=== PATIENT | male | born 1965 | race Caucasian/White ===

== ENCOUNTER 2017-05-01 08:54 | Inpatient (IN) | payer SELFPAY ==
[~2017-05-01] VITALS: Ht 177.8 cm; Wt 72.1 kg
--- NOTE | 2017-05-01 08:54 | NUR ---
BBRA [address] C/O DIFFUSE ABD PAIN X4 HOURS HEAD OF SCIENCE. NAD NOTED. PT AAO X4, AMBULATORY WITH STEADY GAIT. RR EVEN AND UNLABORED. VSS. DR MALDONADO AT BEDSIDE FOR EVAL.
[2017-05-01] MEDS ORDERED: IV NS 0.9% 1,000 ML BAG IV ONE (09:00)
[2017-05-01] MEDS ORDERED: ONDANSETRON HCL/PF 4 MG/2 ML VIAL IVP ONE (09:00)
[2017-05-01] MEDS ORDERED: HYDROMORPHONE INJ 2 MG/ML DISP.SYRIN IV ONE (09:00)
[2017-05-01] MEDS ORDERED: LORAZEPAM INJ 2 MG/ML VIAL IV ONE ×2 (09:00→11:00)
[2017-05-01] MEDS ORDERED: ONDANSETRON HCL/PF 4 MG/2 ML VIAL ONE (09:07)
[2017-05-01] MEDS ORDERED: LORAZEPAM INJ 2 MG/ML VIAL ONE ×2 (09:08→11:18)
[2017-05-01] MEDS ORDERED: MORPHINE SULFATE INJ 4 MG/ML DISP.SYRIN ONE ×2 (09:10→13:03)
[2017-05-01 09:24] LABS: BASOPHILS # (AUTO) 0.1 /CMM (0.0-0.2); BASOPHILS % (AUTO) 0.8 % (0.0-2.0); HEMATOCRIT 46 % (39-51); LYMPHOCYTES % (AUTO) 19.3 % (20.0-44.0); MEAN CORPUSCULAR HEMOGLOBIN 29 PG (26.0-33.0); MEAN CORPUSCULAR HGB CONC 33 g/dl (31.0-36.0); MEAN CORPUSCULAR VOLUME 89 fL (80-96); MONOCYTES # (AUTO) 0.5 /CMM (0.1-1.30); MONOCYTES % (AUTO) 5.1 % (2.0-12.0); NEUTROPHILS # (AUTO) 7.8 /CMM (1.8-8.9); NEUTROPHILS % (AUTO) 74.8 % (43.0-81.0); PLATELET COUNT (AUTO) 262 /CMM (150-450); RED BLOOD CELL COUNT(AUTO) 5.12 MIL/uL (4.5-6.0); WHITE BLOOD COUNT (AUTO) 10.5 K/uL (4.3-11.0)
[2017-05-01] MEDS ORDERED: MORPHINE SULFATE INJ 2 MG/ML DISP.SYRIN IV ONE (09:30)
[2017-05-01 09:40] LABS: CALCIUM, SERUM 9.1 mg/dL (8.5-10.1); CREATININE 0.9 mg/dL (0.6-1.3); POTASSIUM 4.1 mmol/L (3.5-5.1)
[2017-05-01 09:42] LABS: INR 0.95 (0.87-1.13); PROTHROMBIN TIME 9.9 SECS (9.5-12.7)
[2017-05-01 09:44] LABS: ALBUMIN 3.4 g/dL (3.4-5.0); BILIRUBIN,DIRECT 0.1 mg/dL (0.0-0.2); BILIRUBIN,TOTAL 0.2 mg/dL (0.2-1.0); TOTAL PROTEIN, SERUM 8.4 g/dL (6.4-8.2)
--- NOTE | 2017-05-01 11:21 | NUR ---
[facility] PAGED, SPIRAL WINDING MACHINE HELPER
--- NOTE | 2017-05-01 11:23 | NUR ---
CALLED NURSING SUP. FOR MS BED
--- NOTE | 2017-05-01 11:37 | NUR ---
CALLED (SWAGING MACHINE ADJUSTER SURGEON), TRANSFERRED CALL TO .
[2017-05-01] MEDS ORDERED: ZOLPIDEM TARTRATE 5 MG TABLET PO PRN (12:00)
[2017-05-01] MEDS ORDERED: ONDANSETRON HCL/PF 4 MG/2 ML VIAL IVP PRN (12:00)
[2017-05-01] MEDS ORDERED: ACETAMINOPHEN 325 MG TABLET PO PRN (12:00)
[2017-05-01] MEDS ORDERED: Z GUARD REMEDY 2 OZ OINT TP PRN (12:00)
--- NOTE | 2017-05-01 12:00 | NUR ---
REPORT GIVEN TO JO
[2017-05-01] MEDS ORDERED: IOHEXOL-300 100 ML VIAL IV ONE (12:30)
[2017-05-01] MEDS ORDERED: IV NS 0.9% 500 ML IV ONE (12:31)
--- NOTE | 2017-05-01 12:31 | NUR ---
PT TO RADIOLOGY FOR CT ABDOMEN W/ CONTRAST VIA GURNEY.
[2017-05-01] MEDS ORDERED: MORPHINE SULFATE INJ 4 MG/ML DISP.SYRIN IV STA (13:01)
[2017-05-01 13:40] VITALS: BP 136/77
--- NOTE | 2017-05-01 15:00 | NUR ---
STEFANI RN NOTE Received patient from ER via jo-ann as accompanied by ER staff @[id number] with admitting Dx: SBO. Pt sleepy and gets agitated when tried to obtain any information, unable to obtain any information at this time. IV site on LAC intact and patent. Dr. Carmona saw patient in ER per May (ER nurse). Skin pictures taken and placed in chart. Took 4 staff members assistance to draw Lab for lactic acid by prepress technician. Bed in low locked position and bed alarm on. Pt placed near nurses station at this time for safety. Will continue to monitor.
[2017-05-01] MEDS: IV D5/0.45 NACL 1,000 ML IV PRN (15:38)
[2017-05-01 16:00] VITALS: BP 131/69
[2017-05-01] MEDS ORDERED: IV D5/0.45 NACL 1,000 ML IV ONE (16:00)
--- NOTE | 2017-05-01 16:11 | NUR ---
AM RN NOTE Lactic acid results 2.[address] Carmona with new order to give D5 1/2 NS 1000ml bolus x1, order noted and carried out. Dr. Carmona made aware that pt was uncooperative with NG tube insertion in ER and also on this floor and will re-attempt. IV bolus initiated at this time.
--- NOTE | 2017-05-01 17:58 | NUR ---
AM RN NOTE Pt lying in his bed, IV bolus x1 dose completed. Called Dr. Carmona made aware that patient gets uncooperative, agitated and tries to pull out NG tube when nurses tried to insert. New orders given by Dr. Carmona for sha soft wrist restraints and 1:1 sitter, orders noted and carried out. Will reattempt. CN (Berenice) made aware.
--- NOTE | 2017-05-01 18:15 | NUR ---
AM RN NOTE Reagan soft wrist restraints applied as assisted by 3 nursing staff. Pt still resists with NG tube insertion, notified CN (Berenice) and per CN endorse it to next shift to reattempt.
--- NOTE | 2017-05-01 19:17 | NUR ---
AM RN NOTE Report given to oncoming RN to reattempt with NG tube insertion.
--- NOTE | 2017-05-01 19:30 | NUR ---
MS RN NOTE: PATIENT RESTING IN BED, NO ACUTE DISTRESS NOTED. BREATHING EVEN AND UNLABORED, NO SOB NOTED. IV TO LAC IN PLACE AND RAC IN PLACE, INFUSING NS AT 75 ML/HR. SITTER AT BEDSIDE. BED LOCKED AND IN LOWEST POSITION, CALL LIGHT IN REACH. WILL CONTINUE TO MONITOR.
[2017-05-01 20:00] VITALS: BP 140/88
--- NOTE | 2017-05-02 01:00 | NUR ---
MS RN NOTE: NG TUBE PLACE TO LEFT NARE, WITHOUT COMPLICATION AND DRAINING DARK BROWN EMESIS. STAT CHEST XRAY ORDERED FOR PLACEMENT. HOB ELEVATED. WILL CONTINUE TO MONITOR.
--- NOTE | 2017-05-02 01:50 | NUR ---
MS RN NOTE: PATIENT NG TUBE 16 FR TO LEFT NARE, CONFIRMED WITH CHEST XRAY FOR PLACEMENT. NG TUBE CONNECTED TO LOW INTERMITTENT SUCTION PER MD ORDER. WILL CONTINUE TO MONITOR.
[2017-05-02] MEDS: IV D5/0.45 NACL 1,000 ML IV PRN (05:35)
--- NOTE | 2017-05-02 06:05 | NUR ---
MS RN NOTE: PATIENT RESTING IN BED, NO ACUTE DISTRESS NOTED. BREATHING EVEN AND UNLABORED, NO SOB NOTED. IV TO LAC IN PLACE AND RAC IN PLACE, INFUSING NS AT 75 ML/HR. NG TUBE TO LEFT NARE IN PLACE, WITH LOW INTERMITTENT SUCTION, WITH ABOUT 100 ML OF DARK BROWN OUTPUT. HOB ELEVATED. BILATERAL SOFT WRIST RESTRAINTS IN PLACE WITH GOOD CIRCULATION NOTED. BED LOCKED AND IN LOWEST POSITION, CALL LIGHT IN REACH. WILL ENDORSE TO DAY NURSE TO CONTINUE WITH PLAN OF CARE.
[2017-05-02 06:37] LABS: ALBUMIN 2.8 g/dL (3.4-5.0); BASOPHILS % (AUTO) 0.1 % (0.0-2.0); BILIRUBIN,TOTAL 0.4 mg/dL (0.2-1.0); CALCIUM, SERUM 8.5 mg/dL (8.5-10.1); CREATININE 0.7 mg/dL (0.6-1.3); HEMATOCRIT 49 % (39-51); HEMOGLOBIN 16.1 g/dL (13.5-17.5); LYMPHOCYTES # (AUTO) 0.9 /CMM (0.8-4.8); LYMPHOCYTES % (AUTO) 8.2 % (20.0-44.0); MAGNESIUM 1.6 mg/dL (1.8-2.4); MEAN CORPUSCULAR HEMOGLOBIN 30 PG (26.0-33.0); MEAN CORPUSCULAR HGB CONC 33 g/dl (31.0-36.0); MEAN CORPUSCULAR VOLUME 89 fL (80-96); MONOCYTES # (AUTO) 0.6 /CMM (0.1-1.30); MONOCYTES % (AUTO) 5.5 % (2.0-12.0); NEUTROPHILS # (AUTO) 9.6 /CMM (1.8-8.9); NEUTROPHILS % (AUTO) 86.2 % (43.0-81.0); PHOSPHORUS 4.3 mg/dL (2.5-4.9); PLATELET COUNT (AUTO) 253 /CMM (150-450); POTASSIUM 3.8 mmol/L (3.5-5.1); RDW COEFFICIENT OF VARIATION 15.4 (11.5-15.0); RED BLOOD CELL COUNT(AUTO) 5.45 MIL/uL (4.5-6.0); TOTAL PROTEIN, SERUM 7.3 g/dL (6.4-8.2); WHITE BLOOD COUNT (AUTO) 11.1 K/uL (4.3-11.0)
[2017-05-02 08:00] VITALS: BP 151/95
--- NOTE | 2017-05-02 09:21 | NUR ---
ADVANCED NG TUBE BY [address] CAZARES'S REQUEST. PT TOLERATED WELL.
[2017-05-02] MEDS: Magnesium 1GM/D5W 100ML PREMIX 100 ML IV SCH ×2 (12:10→13:41)
[2017-05-02] MEDS: MORPHINE SULFATE INJ 2 MG/ML DISP.SYRIN IM PRN (14:25)
[2017-05-02] MEDS: LORAZEPAM INJ 2 MG/ML VIAL IV PRN (15:33)
--- NOTE | 2017-05-02 15:47 | NUR ---
GAVE ATIVAN PATIENT IS STARTING TO SCREAM AND CURSE AT STAFF. NOW SLEEPING.
--- NOTE | 2017-05-02 15:55 | NUR ---
PT REFUSED 1600 VITALS
--- NOTE | 2017-05-02 18:34 | NUR ---
CLOSING NOTES NO SIGNIFICANT CHANGES IN PATIENT CONDITION THROUGHOUT THE SHIFT. NO SOB OR DISTRESS NOTED AT THIS TIME. PATIENT HAS BEEN SLEEPING ON AND OFF SINCE RECEIVING ATIVAN DOSE EARLIER IN THE SHIFT. BED IN A LOW POSITION, CALL LIGHT WITHIN PATIENT REACH. WILL ENDORSE FOR JUNIE.
--- NOTE | 2017-05-02 19:30 | NUR ---
RN NOTE; RECEIVED PT IN BED SLEEPING AT THIS T BEBO. BILATERAL SOFT WRIST RESTRAIN IN PLACE. W/ NO S/S OF SKIN OR CIRCULATORY IMPAIRMENT. NGT IN PLACE W/ ONGOING SUCTIONING GREEN GASTRIC JUICE. NO S.S OF PAIN OR DISCOMFORT NOTED, CALL LIGHT WITHIN REACH. BED LOW LOCKED. SRX2. WILL CONT TO MONITOR,
[2017-05-02 20:00] VITALS: BP 138/88
[2017-05-03] MEDS: LORAZEPAM INJ 2 MG/ML VIAL IV PRN (01:10)
--- NOTE | 2017-05-03 01:10 | NUR ---
ATIVAN GIVEN ORDERED FOR ANXIETY AND AGITATION M/B SCREAMING . DIAPER CHANGE WAS DONE AND MADE PT COMFORTABLE IN BED. WILL CONT TO MONITOR ,
[2017-05-03 01:24] VITALS: BP 138/88
[2017-05-03 06:48] LABS: CREATININE 0.7 mg/dL (0.6-1.3); MAGNESIUM 1.8 mg/dL (1.8-2.4); POTASSIUM 4.1 mmol/L (3.5-5.1)
--- NOTE | 2017-05-03 07:00 | NUR ---
RN NOTE; PT IN BED SLEEPING, AROUSES EASILY. W/ ON ND OFF EPISODES OF SCREAMING AND YELLING. BILAT SOFT WRIST RESTRAIN IN PLACE. NEEDS ATTENDED. CLEANED AND DRIED. CALL LIGHT WITHIN REACH. WILL CONT TO MONITOR AND WILL ENDORSE TO AM SHIFT FOR JUNIE.
--- NOTE | 2017-05-03 07:10 | NUR ---
ms rn initial notes Received patient in bed, asleep, head of bed elevated, no SOB or distress noted. On restraint and checked for circulation. NGT attached to low intermitent suctioning with no output noted at this time. IV intact and patent with IVF infusing well. Kept patient clean and comfortable in bed, call light with in patient reach, will continue to monitor accordingly.
[2017-05-03 08:00] VITALS: BP 140/73
[2017-05-03 09:14] LABS: *BASOS 0 % (Not Estab.); *EOS 0 % (Not Estab.); *HCT 43.3 % (37.5-51.0); *IMMATURE GRANULOCYTES 0 % (Not Estab.); *LYMPHOCYTES 16 % (Not Estab.); *LYMPHS, ABSOLUTE 1.3 x10E3/uL (0.7-3.1); *MCH 30.2 pg (26.6-33.0); *MCHC 34.6 g/dL (31.5-35.7); *MCV 87 fL (79-97); *MONOCYTES 9 % (Not Estab.); *MONOS, ABSOLUTE 0.7 x10E3/uL (0.1-0.9); *NEUTROPHILS 75 % (Not Estab.); *NEUTROPHILS, ABSOLUTE 5.9 x10E3/uL (1.4-7.0); *PLT 242 x10E3/uL (150-379); *RBC 4.97 x10E6/uL (4.14-5.80); *RDW 14.7 % (12.3-15.4)
[2017-05-03] MEDS: MORPHINE SULFATE INJ 2 MG/ML DISP.SYRIN IM PRN (09:48)
[2017-05-03] MEDS: IV D5/0.45 NACL 1,000 ML IV PRN (09:48)
--- NOTE | 2017-05-03 12:21 | NUR ---
WOUND CARE CONSULT: LIMITED ASSESSMENT DUE TO PT AGITATED AND COMBATIVE AT TIMES. DRY CRACKED SKIN NOTED TO HANDS AND FEET. RECOMMEND A& D OINTMENT. DISCUSSED WITH NURSING STAFF. CURRENT SHAHLA SCORE IS 14. WILL SEE PRN. Addendum: 05/03/17 at 1221 by GABBIE CHARLTON WNDNU Amended: Links added.
[2017-05-03] MEDS ORDERED: VITAMINS A AND D 56.7 GM TUBE TP PRN (12:30)
--- NOTE | 2017-05-03 12:51 | NUR ---
MS RN NOTES Informed Dr. Carmona regarding patient pulled out his NGT and informed regarding KUB result and made aware. Per MD to re-insert NGT and document if patient refused. All orders carried out and noted. Will continue to monitor.
--- NOTE | 2017-05-03 12:59 | NUR ---
ms rn notes Explained to the patient regarding NGT re-insertion and patient refuses, explained the risk and benefits x 3 and still refused. Patient verbalized to eat but explained the risk if he eats and the result of the KUB and become agitated and removed his bilateral arm restraint. made aware.
--- NOTE | 2017-05-03 14:44 | NUR ---
AURELIANO received a call from LALO Coe stating that pt. is homeless and insisting on going AMA. Pt. is a 52 year old male who was admitted to [facility] for bowel obstruction. AURELIANO met with pt., LALO Coe and security messenger [place] [employer]. Pt. appears agitated and upset. Pt. informed SW that he is hungry and is not able to eat food here and would like to leave. AURELIANO and LALO Coe tried to explain to pt. that he is NPO due to some tests that need to be done. AURELIANO encouraged pt. to stay, however pt. is adamant about leaving. Pt. is homeless. SW offered pt. homeless correction and winter correction resources along with food resources. SW also gave pt. a pair of shoes since pt. did not have any on him. Pt. left AMA. No other social service needs are required at this time.
--- NOTE | 2017-05-03 14:45 | NUR ---
ms rn AMA notes Patient is agitated and keep asking for food and explained it to him that he cannot have food or drink due to risk for his diagnosis of small bowel obstructions and shows on the KUB done this morning. Called security due to patient being aggressive. Called [place] social service and made aware and spoke to him in regards with the care we are giving him and the risk if he eats food due to his diagnosis. Explained the risk and benefits x 3 and still insisted to leave AMA. Long Term resources given by Shayy and handed the paper to the patient. Signed AMA form and filed in the chart. Left via wheelchair accompanied by security and HAIR DESIGNER assigned. Dr. Carmona made aware.
[2017-05-04 03:08] LABS: *% CD 8 POS. LYMPH 78.8 % (12.0-35.5); *ABSOLUTE CD 4 HELPER 130 /uL (359-1519); *ABSOLUTE CD 8 SUPPRESSOR 1024 /uL (109-897); *CD4/CD8 RATIO 0.13 (0.92-3.72)
== END 2017-05-03 14:45 | disposition left against medical advice (07) | DRG 388 ==
LOC: ER 08:56 → MEDSG2 11:54
PROVIDERS: ADMIT Internal Medicine; ATTEND Internal Medicine
DX: K56.600 Partial intestinal obstruction, unspecified as to cause (principal); G92 Toxic encephalopathy; Z59.0 Homelessness; K40.90 Unilateral inguinal hernia, without obstruction or gangrene, not specified as recurrent
CPT/HCPCS: 36415; 71010-TC; 74000-TC; 80048-TC; 80053-TC; 80061-TC; 80076-TC; 83605-TC; 83690-TC; 83735-TC; 84100-TC; 85025-TC; 85730-TC; 86360; 87081-TC; A4606; G0480; J2060; J2270; J2405; J3475; J3490; J7030; J7040; Q9967; Z7610